=== PATIENT | male | born 1940 | race Caucasian/White ===

== ENCOUNTER 2018-03-18 15:07 | Observation (INO) ==
--- NOTE | 2018-03-18 15:34 | Emergency Department Note ---
Disposition Clinical Impression: Generalized weakness Disposition: Still a Patient General Adult HPI - General Stated complaint: General Weakness Time Seen by Provider: 03/18/18 15:10 Nursing Notes Reviewed: Yes Vital Signs Reviewed: Yes - History of Present Illness HPI Narrative: Attestation note: Patient was seen with the emergency medicine resident/nurse practitioner/physician ward assistant/transitional resident/medical student: Dr. ERROL PINEDA I have personally performed a face to face evaluation on this patient. I have reviewed and agree with history and physical examination patient management and disposition. Briefly the salient points of the case are as follows: 77-year-old male COPD home O2 however uses it irregularly. Brought in by the EMS and his daughter for generalized weakness for the past day or so he was having periods where he was earlier today where he was talking about things that did not make sense to the daughter "legal matters". When is nothing really going on in that arena. There is no slurred speech or problems with movement normally needs a walker and cane to get around the house it does not change nausea but no vomiting no fever shortness breath chest pain L contacts exotic recent travel. Patient will undergo ED evaluation. Patient stable disposition pending admission anticipated
--- NOTE | 2018-03-18 15:34 | Emergency Department Note ---
Addendum entered and electronically signed by Janet Montero 03/18/18 18:51: Addendum to clinical impressions. Patient does not have hypercoagulable state. His elevated INR and PTT. Supratherapeutic INR added to clinical impression. Original Note: Disposition Clinical Impression: Generalized weakness, Acute kidney injury, Hypercoagulable state Pneumonia Qualifiers: Pneumonia type: due to unspecified organism Laterality: bilateral Lung location: lower lobe of lung Qualified Code(s): J18.1 - Lobar pneumonia, unspecified organism Disposition: Admitted As Inpatient Condition: Fair Referrals: NONE,PCP [Primary Care Provider] - General Adult HPI - General Stated complaint: General Weakness Time Seen by Provider: 03/18/18 15:10 Source: patient, family Mode of arrival: EMS Limitations: no limitations Nursing Notes Reviewed: Yes Vital Signs Reviewed: Yes - History of Present Illness HPI Narrative: 77-year-old male with past medical history including atrial fibrillation with pacemaker/AICD, coronary artery disease, CHF hypertension presenting with chief complaint of generalized weakness and confusion just prior to arrival. The p atient states he is generally not feeling well last night, feeling nauseous. He has been having intermittent episodes of dry heaving today but no vomiting. He denies diarrhea or abdominal pain. He was out with his late this afternoon for a couple of hours and was in normal health. When they arrived home half hour prior to arrival, states patient appears to be confused. 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 Denies slurred speech, facial droop, unilateral weakness, paresthesias. She immediately called EMS. On arrival, patient was noted to be alert and oriented 4. No focal neurologic deficits. EMS. Accu-Chek within normal limits. Patient denies any fevers, chest pain, palpitations, lower extremity swelling, cough, shortness of breath. states he had 2 episodes of urinary incontinence today but he took his Lasix this morning. She also states patient is supposed to be on 2 L of oxygen during the day and 3 L of oxygen at nighttime but he was not wearing his oxygen today. - Related Data Home Medications Medication Instructions Recorded Confirmed BuPROPion SR (12 HR) [Wellbutrin 150 mg PO DAILY 03/18/18 03/18/18 SR] Carvedilol [Coreg] 6.25 mg PO BID 03/18/18 03/18/18 HYDROcodone/Acet 10/325 mg [[place] 1 tab PO Q6HR PRN 03/18/18 03/18/18 10-325 mg] Magnesium Oxide [Mag-Ox] 400 mg PO BID 03/18/18 03/18/18 Mirtazapine [Remeron] 15 mg PO HS 03/18/18 03/18/18 Montelukast [Singulair] 10 mg PO DAILY 03/18/18 03/18/18 Omeprazole [PriLOSEC] 20 mg PO DAILY 03/18/18 03/18/18 Potassium Chloride [K-Tab ER] 20 meq PO DAILY 03/18/18 03/18/18 Sotalol [Betapace] 80 mg PO Q12HR 03/18/18 03/18/18 Spironolactone [Aldactone] 25 mg PO DAILY 03/18/18 03/18/18 Tamsulosin HCl [Flomax] 0.4 mg PO DAILY 03/18/18 03/18/18 Torsemide [Demadex] 20 mg PO DAILY 03/18/18 03/18/18 Umeclidinium Brm/Vilanterol Tr 1 puff IH DAILY 03/18/18 03/18/18 [Anoro Ellipta 62.5-25 Mcg INH] Warfarin perPT [Coumadin perPT] 6.5 mg PO DAILY 03/18/18 03/18/18 clonazePAM [Klonopin] 1 mg PO HS 03/18/18 03/18/18 Allergies Allergy/AdvReac Type Severity Reaction Status Date / Time No Known Allergies Allergy Verified 03/18/18 17:13 All systems ED: reviewed and negative except as stated. Review of Systems: As Per HPI Constitutional: Denies: fever, chills ENT ED: Denies: ear pain, throat pain, congestion Cardiovascular: Denies: chest pain, palpitations Respiratory: Denies: cough, dyspnea Gastrointestinal: Reports: nausea. Denies: abdominal pain, vomiting, diarrhea Genitourinary: Reports: other (Incontinence). Denies: urgency, dysuria Musculoskeletal: Denies: back pain Integumentary: Denies: rash Neurological: Reports: weakness, confusion. Denies: headache, paresthesias Past Medical History - Past Medical History Attestation: Yes The following information was validated with the patient. Source: patient, old records reviewed, obtained from family Medical history: Reports: atrial fibrillation, CHF, COPD, hypertension Surgical history: Reports: AICD, pacemaker - Social History Smoking Status: Former smoker Alcohol use: Reports: unknown Drug use: Reports: none Physical Exam - General Limitations: no limitations General appearance: alert, in no apparent distress - Head Head exam: atraumatic, normocephalic, normal inspection - Eye Eye exam: Present: normal appearance, PERRL, EOMI - ENT ENT exam: normal exam, normal oropharynx, mucous membranes moist - Neck Neck exam: Present: normal inspection, full ROM, trachea midline - Chest Chest inspection: Present: normal inspection, symmetric chest wall rise - Respiratory Respiratory exam: Present: other (Decreased breath sounds bilaterally. No wheezing or rhonchi.) - Cardiovascular Cardiovascular exam: Present: regular rate, normal rhythm, normal heart sounds - Abdominal Exam Abdominal exam: Present: soft, Non-Tender. Absent: tenderness, distention, guarding, rebound, rigidity - Extremities Exam Extremities exam: Present: normal inspection, full ROM, other (Bilateral lower extremity 1+ edema to mid calf). Absent: tenderness - Neurological Exam Neurological exam: Present: alert, oriented X3, CN II-XII intact, other (NIHSS 0). Absent: motor sensory deficit - Expanded Neurological Exam Patient oriented to: Present: person, place, time Speech: Present: fluid speech Cerebellar function: finger to nose: Normal, heel to devlin: Normal Motor strength - LUE: 5/5 Motor strength - RUE: 5/5 Motor strength - LLE: 5/5 Motor strength - RLE: 5/5 Upper motor neuron exam: billy neglect: Absent bilaterally, pronator drift: Absent bilaterally Sensory exam upper extremity: light touch: Normal Sensory exam lower extremity: light touch: Normal - Psychiatric Psychiatric exam: Present: normal affect, normal mood - Skin Skin exam: Present: warm, dry, intact, normal color Course Vital Signs Temperature 98.3 F 03/18/18 15:14 Pulse Rate 76 03/18/18 15:14 Respiratory Rate 20 03/18/18 15:14 Blood Pressure 109/57 03/18/18 15:14 O2 Sat by Pulse Oximetry 90 03/18/18 15:14 Temperature 98.3 F 03/18/18 15:14 Pulse Rate 64 03/18/18 18:32 Respiratory Rate 22 12/30/18 18:32 Blood Pressure 99/49 03/18/18 18:32 O2 Sat by Pulse Oximetry 94 03/18/18 18:32 Oxygen Delivery Oxygen Delivery Nasal Cannula Medical Decision Making - [facility] Narrative Medical decision making narrative: Patient presenting with dry heaving, generalized weakness. Concern for confusion at home.Her speech, unilateral weakness, facial droop, paresthesias. Patient is alert and oriented 4. NIHSS is 0. No recent ill contacts, concern for infection. We will obtain ACS workup and sources of infection that can be a cause of his generalized weakness. We will check EKG, troponin, chest x-ray, CBC, BMP, lactate, urinalysis. Concern for new confusion and the patient is on Coumadin, will obtain CT head without contrast. 16:45 Chest x-ray with bilateral pneumonia. We will give IV antibiotics to cover community-acquired pneumonia. Troponin is normal. EKG without acute ischemic changes. Lactate normal. Electrolytes normal. Patient does have MARIBETH. Will give 500cc bolus IVFs and monitor as patient has history of congestive heart failure and pleural effusion on cxr. CT head without acute intracranial abnormality. WIll obtain lateral view of CXR to better visualize his pneumonia. Patient is also on warfarin and INR elevated at 3.9 and PT elevated at 44.4. Pharmacy with concerns that the patient is taking both sotalol and Corag, this will need to be addressed. 17:30 Family concerned as patient was talking about "random things" and not making sense. No facial droop, slurred speech, focal neurologic deficits on repeat exam. Lateral view CXR shows bibasilar atelectasis and pleural effusions. Urine drug screen negative. Will admit to hospitalist. 18:35 Discussed with hospitalist, Dr. Alberto, who accepts admission for pneumonia and intermittent confusion, generalized weakness. - Medical Records Medical records reviewed: Yes I reviewed the patient's medical records. - Lab Data Lab results reviewed: Yes I reviewed the patient's lab results. Result diagrams: 03/18/18 15:21 03/18/18 15:21 Lab Results 03/18/18 03/18/18 03/18/18 Range/Units 15:11 15:21 15:21 WBC 11.7 H (4.3-11.1) K/mcL RBC 4.83 (4.19-5.50) M/mcL Hgb 14.8 (12.9-16.9) g/dL Hct 44.7 (37.5-50.1) % MCV 92.5 (83.0-100.0) fL MCH 30.6 (28.0-33.3) pg MCHC 33.1 (31.6-35.5) g/dL RDW 13.8 (11.5-14.5) % Plt Count 135 L (140-400) K/mcL MPV 10.2 (9.4-12.4) fL Immature Gran % 0.8 (0-4) % Seg Neutrophils % 87.7 % Lymphocytes % 2.2 % Monocytes % 8.3 % Eosinophils % 0.7 % Basophils % 0.3 % Neutrophils # 10.2 H (1.6-8.9) K/mcL Lymphocytes # 0.3 L (0.6-4.6) K/mcL Monocytes # 1.0 (0.0-1.3) K/mcL Eosinophils # 0.1 (0.0-0.6) K/mcL Basophils # 0.0 (0.0-0.2) K/mcL PT 44.4 H* (9.4-12.1) Seconds INR 3.9 Sodium 132 L (136-145) mEq/L Potassium 4.2 (3.5-5.1) mEq/L Chloride 97 L (98-107) mEq/L Carbon Dioxide 25 (23-29) mEq/L BUN 30 H (8-23) mg/dL Creatinine 1.39 H (0.70-1.30) mg/dL Est GFR ( Amer) 60 (> 60) Est GFR (Non-Af Amer) 49 L (> 60) BUN/Creatinine Ratio 22 (6-26) Glucose 123 H (70-105) mg/dL Calculated Osmolality 282 (280-300) Lactic Acid (0.5-2.2) mmol/L Calcium 9.1 (8.6-10.3) mg/dL Troponin I < 0.03 (< 0.04) ng/mL Urine Color (Yellow) Urine Clarity (Clear) Urine pH (5.0-8.0) pH Units Ur Specific [place] (1.010-1.025) Urine Protein (Neg-Trace) mg/dL Urine Glucose (UA) (Normal) mg/dL Urine Ketones (Negative) mg/dL Urine Blood (Negative) Urine Nitrite (Negative) Urine Bilirubin (Negative) Urine Urobilinogen (Normal) mg/dL Ur Leukocyte Esterase (Negative) 03/18/18 03/18/18 Range/Units 15:39 17:25 WBC (4.3-11.1) K/mcL RBC (4.19-5.50) M/mcL Hgb (12.9-16.9) g/dL Hct (37.5-50.1) % MCV (83.0-100.0) fL MCH (28.0-33.3) pg MCHC (31.6-35.5) g/dL RDW (11.5-14.5) % Plt Count (140-400) K/mcL MPV (9.4-12.4) fL Immature Gran % (0-4) % Seg Neutrophils % % Lymphocytes % % Monocytes % % Eosinophils % % Basophils % % Neutrophils # (1.6-8.9) K/mcL Lymphocytes # (0.6-4.6) K/mcL Monocytes # (0.0-1.3) K/mcL Eosinophils # (0.0-0.6) K/mcL Basophils # (0.0-0.2) K/mcL PT (9.4-12.1) Seconds INR Sodium (136-145) mEq/L Potassium (3.5-5.1) mEq/L Chloride (98-107) mEq/L Carbon Dioxide (23-29) mEq/L BUN (8-23) mg/dL Creatinine (0.70-1.30) mg/dL Est GFR ( Amer) (> 60) Est GFR (Non-Af Amer) (> 60) BUN/Creatinine Ratio (6-26) Glucose (70-105) mg/dL Calculated Osmolality (280-300) Lactic Acid 1.8 (0.5-2.2) mmol/L Calcium (8.6-10.3) mg/dL Troponin I (< 0.04) ng/mL Urine Color Yellow (Yellow) Urine Clarity Clear (Clear) Urine pH 5.5 (5.0-8.0) pH Units Ur Specific [place] 1.006 L (1.010-1.025) Urine Protein Negative (Neg-Trace) mg/dL Urine Glucose (UA) Normal (Normal) mg/dL Urine Ketones Negative (Negative) mg/dL Urine Blood Negative (Negative) Urine Nitrite Negative (Negative) Urine Bilirubin Negative (Negative) Urine Urobilinogen Normal (Normal) mg/dL Ur Leukocyte Esterase Negative (Negative) - Radiology Data Radiology results reviewed: Yes I reviewed the patient's radiology results. Chest X-Ray 03/18/18 15:11 IMPRESSION: Bibasilar airspace opacities which may represent pneumonia in the correct clinical setting. Consider follow-up PA and lateral exam for better characterization. D/ / 03/18/2018 16:09:00 Silviano Carreon MD / donna Interpreting Provider: Silviano Carreon MD Head CT 03/18/18 15:35 IMPRESSION: No acute intracranial abnormality. New complete opacification of the right maxillary sinus, likely chronic. No air-fluid levels. D/ / Florencio Simmons MD / Florencio Simmons MD Interpreting Provider: Florencio Simmons MD - EKG Data EKG #1 EKG attestation: Yes I reviewed and interpreted this EKG. EKG results narrative: EKG from today at 1516 shows sinus rhythm with heart rate 80. MA interval 183. QRS duration 99. QTc 4:30. Old anterior infarct. No ST elevation or depression noted. There is no old EKG to compare to.
[2018-03-18 15:49] LABS: Basophils % 0.3 %; Eosinophils # 0.1 K/mcL (0.0-0.6); Eosinophils % 0.7 %; Hematocrit 44.7 % (37.5-50.1); Hemoglobin 14.8 g/dL (12.9-16.9); Immature Granulocytes % 0.8 % (0-4); Lymphocytes # 0.3 K/mcL (0.6-4.6); Lymphocytes % 2.2 %; Mean Corpuscular HGB Conc 33.1 g/dL (31.6-35.5); Mean Corpuscular Hemoglobin 30.6 pg (28.0-33.3); Mean Corpuscular Volume 92.5 fL (83.0-100.0); Mean Platelet Volume 10.2 fL (9.4-12.4); Monocytes % 8.3 %; Neutrophils # 10.2 K/mcL (1.6-8.9); Platelet Count 135 K/mcL (140-400); Red Blood Count 4.83 M/mcL (4.19-5.50); Red Cell Distribution Width 13.8 % (11.5-14.5); Segmented Neutrophils % 87.7 %
[2018-03-18 16:08] LABS: INR 3.9
[2018-03-18 16:11] LABS: BUN/Creatinine Ratio 22 (6-26); Blood Urea Nitrogen 30 mg/dL (8-23); Calcium 9.1 mg/dL (8.6-10.3); Carbon Dioxide 25 mEq/L (23-29); Chloride 97 mEq/L (98-107); Glucose 123 mg/dL (70-105); Osmolality,Calculated 282 (280-300); Potassium 4.2 mEq/L (3.5-5.1); Sodium 132 mEq/L (136-145); eGFR For Non-African Americans 49 (> 60)
[2018-03-18 16:12] LABS: Troponin I < 0.03 ng/mL (< 0.04)
[2018-03-18] MEDS ORDERED: 0.9 % Sodium Chloride 500 ML IVC ONE (16:14)
[2018-03-18 16:15] LABS: Prothrombin Time 44.4 Seconds (9.4-12.1)
[2018-03-18] MEDS ORDERED: cefTRIAXone 1,000 MG in Water for inj. (sterile) 20 ML 10 ML IVP ONE (16:46)
[2018-03-18] MEDS ORDERED: Azithromycin 500 MG in D5% in Water 250 ML IVPB ONE (16:46)
[2018-03-18 17:37] LABS: Bilirubin,Urine Negative (Negative); Blood,Urine Negative (Negative); Clarity,Urine Clear (Clear); Color,Urine Yellow (Yellow); Glucose,Urine (UA) Normal (Normal); Ketones,Urine Negative (Negative); Leukocyte Esterase,Urine Negative (Negative); Nitrite,Urine Negative (Negative); PH,Urine 5.5 pH Units (5.0-8.0); Protein,Urine Negative (Neg-Trace); Specific Gravity,Urine 1.006 (1.010-1.025); Urobilinogen,Urine Normal (Normal)
[2018-03-18] MEDS ORDERED: Naloxone 0.4 MG/ML INJ IVP PRN (19:40)
[2018-03-18] MEDS ORDERED: *HR* HYDROcodone/Acet 10/325 mg TABLET PO PRN (19:42)
--- NOTE | 2018-03-18 20:11 | Internal Med History&Physical ---
Date of Encounter: 03/18/18 Time of Encounter: 20:08 Internal Medicine - H&P: HPI Chief complaint: disorientation Admitted From: Home Plans for Post Hospital Care: Home History of present illness: Mr. Elam is a 77 year old male with PMH of CHF(unspecified), HTN, COPD, CRF on home O2, Afib with AICD and BPH. He is seen at the bedside with family. The patient is out of state and resizing [place]. He reports he was visiting his [id number] when he developed intermittent confusion and disorientation this morning. and family members at the bedside report that the patient was confused and speaking and also Are not related to GI distress caution at that time. Report intermittent chills. There was no recorded fever. He reports associated nausea with dry heaving, no vomiting, he denies diarrhea, abdominal pain, changes in urinary output. He denies chest pain or shortness of breath. He denies PND, orthopnea, pedal edema. The patient actually denies having a cough. The patient is supposed to be on 2-3 L of oxygen continuously, but has not been compliant with his oxygen. He also has not been compliant with his medications because he has been incontinent since his visits to his family member here. The patient is no longer confused at time of review, and is able to give a proper history. He has no other neurologic symptoms or deficits. He denies illicit drug use, he has no known allergies. Workup in the emergency room revealed mild leukocytosis 11,700 with left shift, creatinine is at 1.39, INR is supratherapeutic at 2.9. EKG reviewed showed no significant ST segment depression or elevation, no T-wave inversions. Chest x- ray showed bilateral infiltrate suspicious for pneumonia. At time of review, patient's oxygen saturation is stable at 3 L of oxygen, he is no longer confused, is not septic. The patient reports having advanced directives, and he reports he is DO NOT RES USCITATE and DO NOT INTUBATE. He was no form of life support or chest compressions. He will be placed on observation for pneumonia, Past Med Surg Social Fam HX - Past Medical History Medical history: atrial fibrillation, CHF, COPD, hypertension Additional medical history: Prostate cancer Psychiatric history: no psych history - Past Surgical History Surgical History: AICD, pacemaker Additional surgical history: Heart cath - Social History Smoking Status: Former smoker Smokeless Tobacco Status: No Alcohol use: unknown Drug use: none Internal Medicine - H&P: Meds Carvedilol [Coreg] 6.25 mg PO BID 03/18/18 [History] HYDROcodone/Acet 10/325 mg [Plains 10-325 mg] 1 tab PO Q6HR PRN 03/18/18 [History] Mirtazapine [Remeron] 15 mg PO HS 03/18/18 [History] Montelukast [Singulair] 10 mg PO DAILY 03/18/18 [History] Omeprazole [PriLOSEC] 20 mg PO DAILY 03/18/18 [History] Potassium Chloride [K-Tab ER] 20 meq PO DAILY 03/18/18 [History] RX: BuPROPion SR (12 HR) [Wellbutrin SR] 150 mg PO DAILY 03/18/18 [History] RX: Magnesium Oxide [Mag-Ox] 400 mg PO BID 03/18/18 [History] Sotalol [Betapace] 80 mg PO Q12HR 03/18/18 [History] Spironolactone [Aldactone] 25 mg PO DAILY 03/18/18 [History] Tamsulosin HCl [Flomax] 0.4 mg PO DAILY 03/18/18 [History] Torsemide [Demadex] 20 mg PO DAILY 03/18/18 [History] Umeclidinium Brm/Vilanterol Tr [Anoro Ellipta 62.5-25 Mcg INH] 1 puff IH DAILY 03/18/18 [History] Warfarin perPT [Coumadin perPT] 6.5 mg PO DAILY 03/18/18 [History] clonazePAM [Klonopin] 1 mg PO HS 03/18/18 [History] Allergy/AdvReac Type Severity Reaction Status Date / Time No Known Allergies Allergy Verified 03/18/18 17:13 All Systems PM: A 10-system review of systems was performed and is negative for pertinent findings except as documented above in the HPI. - Constitutional Constitutional: as per HPI - EENT Eyes: as per HPI Ears: as per HPI Nose, mouth and throat: as per HPI - Breasts Breasts: as per HPI - Cardiovascular Cardiovascular ROS IM: as per HPI - Respiratory Respiratory: as per HPI - Gastrointestinal Gastrointestinal: as per HPI - Musculoskeletal Musculoskeletal ROS IM: as per HPI - Integumentary Integumentary IM: as per HPI - Neurological Neurological ROS: as per HPI - Hematologic/Lymphatic Hematologic/Lymphatic: as per HPI - Constitutional Vitals: Temp Pulse Resp BP Pulse Ox 98.3 F 64 22 99/51 94 03/18/18 15:14 03/18/18 18:32 03/18/18 19:59 03/18/18 19:59 03/18/18 18:32 General appearance: Present: cooperative, A&O X 3, pleasant, no acute distress Exam: elderly man in no form of distress, speaks full sentences - Head Head exam: Present: atraumatic, normocephalic - Eye Eye exam: Present: PERRL, conjuntiva pink, sclera anicteric Pupils: Present: PERRL - Neck Neck exam general surgery: Present: supple, trachea midline. Absent: lymphadenopathy - Respiratory Respiratory exam: Present: CTAB. Absent: accessory muscle use, rales, rhonchi, wheezes - Cardiovascular Cardiovascular exam: Present: irregular rhythm, +S1, +S2, systolic murmur. Absent: diastolic murmur, gallop, rubs - GI/Abdominal GI/Abdominal exam: Present: normal bowel sounds, soft, no peritoneal signs. Absent: distended, tenderness - Extremities Exam Extremities exam: Present: warm, radial pulses palpable and symmetrical. Absent: calf tenderness, cyanotic, pedal edema - Neurological Exam Neurological exam: Present: alert, CN II-XII intact, oriented X3, no focal deficits. Absent: pronater drift, facial droop, speech deficit - Skin Skin exam: Present: dry, intact Internal Med - H&P Results - Labs CBC & Chem 7: 03/18/18 15:21 03/18/18 15:21 Labs: Short CBC 03/18/18 Range/Units 15:21 WBC 11.7 H (4.3-11.1) K/mcL Hgb 14.8 (12.9-16.9) g/dL Hct 44.7 (37.5-50.1) % Plt Count 135 L (140-400) K/mcL Neutrophils # 10.2 H (1.6-8.9) K/mcL BMP 03/18/18 15:21 Sodium 132 L Potassium 4.2 Chloride 97 L Carbon Dioxide 25 BUN 30 H Creatinine 1.39 H Glucose 123 H Calcium 9.1 Cardiac Enzymes 03/18/18 Range/Units 15:21 Troponin I < 0.03 (< 0.04) ng/mL Urine 03/18/18 Range/Units 17:25 Urine Color Yellow (Yellow) Urine Clarity Clear (Clear) Urine pH 5.5 (5.0-8.0) pH Units Ur Specific [place] 1.006 L (1.010-1.025) Urine Protein Negative (Neg-Trace) mg/dL Urine Glucose (UA) Normal (Normal) mg/dL - Impressions ITS Impressions Chest X-Ray 03/18/18 15:11 IMPRESSION: Bibasilar airspace opacities which may represent pneumonia in the correct clinical setting. Consider follow-up PA and lateral exam for better characterization. D/ / 03/18/2018 16:09:00 Silviano Carreon MD / jia rob Interpreting Provider: Silviano Carreon MD Head CT 03/18/18 15:35 IMPRESSION: No acute intracranial abnormality. New complete opacification of the right maxillary sinus, likely chronic. No air-fluid levels. D/ / Florencio Simmons MD / Florencio Simmons MD Interpreting Provider: Florencio Simmons MD Chest X-Ray 03/18/18 16:43 IMPRESSION: Probable small pleural effusions with bibasilar atelectasis. Probable large hiatal hernia. Chest CT would prove helpful for complete assessment. D/ / 03/18/2018 17:10:19 Uvaldo Mcgregor MD / monica Interpreting Provider: Uvaldo Mcgregor MD - Assessment and plan (1) Pneumonia Current Visit: Yes Status: Suspected Assessment and plan: Suspected Patient presented with disorientation and said to have been hypoxic per squad, he also had some chills and fever. He denies any cough, he denies shortness of breath above his baseline. He is however tachypneic. Chest x-ray shows bilateral bibasilar atelctasis suspicious for PNA Patient's symptoms are not consistent with PNA Will obtain legionella and strep Ag, RIP Continue cef and azithromycin and may de-escalate with work up O2 requirement is at baseline, continue O2 Qualifiers: Pneumonia type: due to unspecified organism Laterality: bilateral Lung location: lower lobe of lung Qualified Code(s): J18.1 - Lobar pneumonia, unspecified organism (2) Supratherapeutic INR Current Visit: Yes Status: Acute Assessment and plan: INR 3.9 On Coumadinf or Afib Hold Coumadin, monitor INR, pharmacy to dose (3) Afib Current Visit: Yes Status: Chronic Assessment and plan: HR currently controlled, patient with ICD Patient with hx of afib on both Coreg and sotalol Patient or is unsure as to why We will hold Sotalol and continue with Coreg Day caballero to pls call Patient's pharmacy [facility] [phone]([place], [place]) Or EPS Dr. 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) and patient seeing a salvage winder twice yearly Received IVF in ER, will hold off IVF, baseline Cr unknown Obtain renal USS Check urine creatinine and urine sodium, although the patient is on diuretics Continue home medications, including diuretics Qualifiers: Renal failure chronicity: unspecified chronicity Qualified Code(s): N19 - Unspecified kidney failure (5) COPD (chronic obstructive pulmonary disease) Current Visit: Yes Status: Chronic Assessment and plan: not in any form of exacerbation at this time, chest is CTAB, no wheezing, no added sounds Duonebs prn Continue home montelukast Qualifiers: COPD type: unspecified COPD Qualified Code(s): J44.9 - Chronic obstructive pulmonary disease, unspecified (6) Chronic respiratory failure Current Visit: Yes Status: Chronic Assessment and plan: not compliant Continue home O2 Qualifiers: Respiratory failure complication: hypoxia Qualified Code(s): J96.11 - Chr onic respiratory failure with hypoxia (7) CHF (congestive heart failure) Current Visit: Yes Status: Suspected Assessment and plan: patient on BB, Spironolactone, torsemide Currently euvolemic Continue home meds Qualifiers: Heart failure type: unspecified Heart failure chronicity: chronic Qualified Code(s): I50.9 - Heart failure, unspecified - Time Spent With Patient Total time spent is greater than 50% in coordination of care (as documented) at patient's floor/unit and/or counseling patient:
[2018-03-18 22:51] LABS: Sodium, Urine 70.7 mEq/L
[2018-03-18] MEDS: clonazePAM 1 MG TABLET PO SCH (23:04)
[2018-03-18] MEDS: Mirtazapine 15 MG TABLET PO SCH (23:04)
[2018-03-18] MEDS: Magnesium Oxide 400 MG TABLET PO SCH (23:04)
[2018-03-19] MEDS ORDERED: Haloperidol Lactate 5 MG/ML VIAL IM ONE (01:02)
--- NOTE | 2018-03-19 01:04 | Event Note ---
Date of Encounter: 03/19/18 Time of Encounter: 01:04 Patient has developed fever with more confusion. Will give acetaminophen as well as one time dose of haldol as he is currently combative Continue antibiotics and await cultures.
[2018-03-19] MEDS ORDERED: Acetaminophen 325 MG TABLET PO PRN (01:07)
[2018-03-19 05:19] LABS: ABG Base Excess 2 mEq/L (-2 to 3); ABG HCO3 25 mEq/L (21-27); ABG Oxygen Saturation 90 % (95-98); ABG PCO2 35 mmHg (35-45); ABG PH 7.47 pH Units (7.32-7.45); ABG PO2 55 mmHg (85-104); ABG TCO2 27 mEq/L (20-26)
[2018-03-19 06:17] LABS: Basophils % 0.3 %; Hematocrit 40.4 % (37.5-50.1); Hemoglobin 13.4 g/dL (12.9-16.9); Immature Granulocytes % 0.7 % (0-4); Lymphocytes # 0.3 K/mcL (0.6-4.6); Lymphocytes % 3.2 %; Mean Corpuscular HGB Conc 33.2 g/dL (31.6-35.5); Mean Corpuscular Hemoglobin 30.7 pg (28.0-33.3); Mean Corpuscular Volume 92.4 fL (83.0-100.0); Mean Platelet Volume 10.2 fL (9.4-12.4); Monocytes # 0.7 K/mcL (0.0-1.3); Monocytes % 7.2 %; Neutrophils # 8.8 K/mcL (1.6-8.9); Platelet Count 109 K/mcL (140-400); Red Blood Count 4.37 M/mcL (4.19-5.50); Red Cell Distribution Width 14.1 % (11.5-14.5); Segmented Neutrophils % 88.6 %
[2018-03-19 06:24] LABS: INR 2.7; Prothrombin Time 30.1 Seconds (9.4-12.1)
[2018-03-19 06:36] LABS: BUN/Creatinine Ratio 26 (6-26); Blood Urea Nitrogen 34 mg/dL (8-23); Calcium 8.7 mg/dL (8.6-10.3); Carbon Dioxide 26 mEq/L (23-29); Chloride 98 mEq/L (98-107); Glucose 104 mg/dL (70-105); Magnesium 2.1 mg/dL (1.6-2.6); Osmolality,Calculated 278 (280-300); Phosphorous 3.5 mg/dL (2.7-4.5); Potassium 4.4 mEq/L (3.5-5.1); Sodium 130 mEq/L (136-145); eGFR For Non-African Americans 52 (> 60)
[2018-03-19] MEDS: Spironolactone 25 MG TABLET PO SCH (07:39)
[2018-03-19] MEDS: Torsemide 20 MG TABLET PO SCH (07:39)
[2018-03-19] MEDS: BuPROPion SR (12 HR) 150 MG TABLET PO SCH (07:39)
[2018-03-19] MEDS: Magnesium Oxide 400 MG TABLET PO SCH ×2 (07:39→22:40)
[2018-03-19] MEDS ORDERED: (Umeclidinium Brm/Vilanterol Tr [Anoro Ellipta 62.5-2 IH SCH (09:00)
[2018-03-19] MEDS: Doxycycline 100 MG in 0.9 % Sodium Chloride Mini Bag 100 ML IVPB SCH ×2 (11:11→17:28)
[2018-03-19] MEDS: Ipratropium/Albuterol Neb 3 ML IH SCH ×3 (11:23→22:03)
--- NOTE | 2018-03-19 11:33 | Internal Med Progress Note ---
Hospitalist Progress Note - Encounter Date of Encounter: 03/19/18 Time of Encounter: 10:15 - Subjective Interval History: Patient is awake and alert. Lying down in bed. Feels better compared to yesterday but continues to have generalized weakness and malaise. Denies any chest pain. Shortness of breath is improving. No nausea or vomiting. No reported fever overnight. - Exam Vitals: Temp Pulse Resp BP Pulse Ox 99.1 F 70 16 151/62 93 03/19/18 06:55 03/19/18 06:55 03/19/18 06:55 03/19/18 06:55 03/19/18 06:55 Exam: General: Patient is alert, no acute distress, oriented x 3 ENT: Mucous membranes moist Respiratory: Basal crackles. Mild wheezing. Cardiovascular: Regular rate and rhythm. s1 and s2 normal No clicks, rubs, gallops, or murmurs. No pedal edema Abdomen: Abdomen is soft, nontender. Bowel sounds are present Musculoskeletal: Spontaneously moving all extremities Skin: warm, dry, intact. Neuro: Alert oriented x 3 normal cranial nerves, no focal deficits - Assessment and Plan (1) Pneumonia Current Visit: Yes Status: Suspected Assessment and Plan: WBC count is improving. Chest x-ray showed bibasal atelectasis. Strep and legionella antigens are negative. Will change antibiotic to azithromycin and ceftriaxone as patient is also on sotalol. Will obtain repeat chest x-ray to evaluate. (2) Supratherapeutic INR Current Visit: Yes Status: Acute Assessment and Plan: Improving. Place patient back on Coumadin per PT INR (3) Afib Current Visit: Yes Status: Chronic Assessment and Plan: Rate controlled. Continue sotalol (4) Renal failure Current Visit: Yes Status: Acute Assessment and Plan: Creatinine 1.32 today. Renal ultrasound done which showed signs of chronic medical renal disease. Most likely patient has chronic kidney disease (5) COPD (chronic obstructive pulmonary disease) Current Visit: Yes Status: Chronic Assessment and Plan: Mild wheezing. Continue bronchodilators. (6) Chronic respiratory failure Current Visit: Yes Status: Chronic Assessment and Plan: Continue O2 supplementation. (7) CHF (congestive heart failure) Current Visit: Yes Status: Suspected Assessment and Plan: Not in acute exacerbation. Patient is euvolemic. Continue home medications including torsemide, spironolactone - Time Spent with Patient Total time spent is greater than 50% in coordination of care (as documented) at patient's floor/unit and/or counseling patient: Internal Medicine: Result - Labs CBC & Chem 7: 03/19/18 05:47 03/19/18 05:47 Labs: Short CBC 03/18/18 03/19/18 Range/Units 15:21 05:47 WBC 11.7 H 9.9 (4.3-11.1) K/mcL Hgb 14.8 13.4 (12.9-16.9) g/dL Hct 44.7 40.4 (37.5-50.1) % Plt Count 135 L 109 L (140-400) K/mcL Neutrophils # 10.2 H 8.8 (1.6-8.9) K/mcL BMP 03/18/18 03/19/18 15:21 05:47 Sodium 132 L 130 L Potassium 4.2 4.4 Chloride 97 L 98 Carbon Dioxide 25 26 BUN 30 H 34 H Creatinine 1.39 H 1.32 H Glucose 123 H 104 Calcium 9.1 8.7 Cardiac Enzymes 03/18/18 Range/Units 15:21 Troponin I < 0.03 (< 0.04) ng/mL Urine 03/18/18 Range/Units 17:25 Urine Color Yellow (Yellow) Urine Clarity Clear (Clear) Urine pH 5.5 (5.0-8.0) pH Units Ur Specific [place] 1.006 L (1.010-1.025) Urine Protein Negative (Neg-Trace) mg/dL Urine Glucose (UA) Normal (Normal) mg/dL - ABG Interpretation ABG results: ABG ABG pH 7.47 pH Units (7.32-7.45) H 03/19/18 05:14 ABG pCO2 35 mmHg (35-45) 03/19/18 05:14 ABG pO2 55 mmHg (85-104) L 03/19/18 05:14 ABG O2 Saturation 90 % (95-98) L 03/19/18 05:14 PT/INR, D-dimer PT 30.1 Seconds (9.4-12.1) H 03/19/18 05:47 - Impressions Impressions Chest X-Ray 03/18/18 15:11 IMPRESSION: Bibasilar airspace opacities which may represent pneumonia in the correct clinical setting. Consider follow-up PA and lateral exam for better characterization. D/ / 03/18/2018 16:09:00 Silviano Carreon MD / donna Interpreting Provider: Silviano Carreon MD Head CT 03/18/18 15:35 IMPRESSION: No acute intracranial abnormality. New complete opacification of the right maxillary sinus, likely chronic. No air-fluid levels. D/ / Florencio Simmons MD / Florencio Simmons MD Interpreting Provider: Florencio Simmons MD Chest X-Ray 03/18/18 16:43 IMPRESSION: Probable small pleural effusions with bibasilar atelectasis. Probable large hiatal hernia. Chest CT would prove helpful for complete assessment. D/ / 03/18/2018 17:10:19 Uvaldo Mcgregor MD / monica Interpreting Provider: Uvaldo Mcgregor MD Retroperitoneum Ultrasound 03/19/18 09:30 IMPRESSION: Findings suggesting chronic medical renal disease with mild renal cortical atrophy. No hydronephrosis or intrarenal stones. Distended bladder with significant postvoid residual possibly secondary to chronic bladder outlet obstruction from an enlarged prostate. D/ / Ryan Benitez MD / Ryan Benitez MD Interpreting Provider: Ryan Benitez MD Consult Discharge Plan - Plan Referrals: NONE,PCP [Primary Care Provider] - (Patient is from [place]) (1) Pneumonia Qualifiers: Pneumonia type: due to unspecified organism Laterality: bilateral Lung location: lower lobe of lung Qualified Code(s): J18.1 - Lobar pneumonia, unspecified organism (3) Afib Qualifiers: Atrial fibrillation type: chronic Qualified Code(s): I48.2 - Chronic atrial fibrillation (4) Renal failure Qualifiers: Renal failure chronicity: unspecified chronicity Qualified Code(s): N19 - Unspecified kidney failure (5) COPD (chronic obstructive pulmonary disease) Qualifiers: COPD type: unspecified COPD Qualified Code(s): J44.9 - Chronic obstructive pulmonary disease, unspecified (6) Chronic respiratory failure Qualifiers: Respiratory failure complication: hypoxia Qualified Code(s): J96.11 - Chronic respiratory failure with hypoxia (7) CHF (congestive heart failure) Qualifiers: Heart failure type: unspecified Heart failure chronicity: chronic Qualified Code(s): I50.9 - Heart failure, unspecified
[2018-03-19] MEDS ORDERED: 0.9 % Sodium Chloride 500 ML IVC ONE (16:37)
[2018-03-19] MEDS: cefTRIAXone 1,000 MG in Water for inj. (sterile) 20 ML 10 ML IVP SCH (16:40)
[2018-03-19] MEDS ORDERED: 0.9 % Sodium Chloride 500 ML ONE (16:40)
[2018-03-19] MEDS ORDERED: Azithromycin 500 MG in D5% in Water 250 ML IVPB SCH (17:00)
[2018-03-19] MEDS ORDERED: Warfarin perPT PO PRN (18:00)
[2018-03-19] MEDS ORDERED: *HR* Warfarin 4 MG TABLET PO ONE (18:00)
[2018-03-19] MEDS: Mirtazapine 15 MG TABLET PO SCH (22:40)
[2018-03-19] MEDS: clonazePAM 1 MG TABLET PO SCH (22:41)
[2018-03-20] MEDS: Ipratropium/Albuterol Neb 3 ML IH SCH ×2 (03:31→09:45)
[2018-03-20 04:36] LABS: Immature Granulocytes % 0.4 % (0-4)
[2018-03-20 04:38] LABS: Basophils % 0.6 %; Eosinophils # 0.2 K/mcL (0.0-0.6); Eosinophils % 3.2 %; Hematocrit 38.9 % (37.5-50.1); Hemoglobin 13.2 g/dL (12.9-16.9); INR 1.4; Lymphocytes # 0.6 K/mcL (0.6-4.6); Lymphocytes % 11.5 %; Mean Corpuscular HGB Conc 33.9 g/dL (31.6-35.5); Mean Corpuscular Hemoglobin 31.3 pg (28.0-33.3); Mean Corpuscular Volume 92.2 fL (83.0-100.0); Mean Platelet Volume 10.2 fL (9.4-12.4); Monocytes # 0.7 K/mcL (0.0-1.3); Monocytes % 14.1 %; Neutrophils # 3.7 K/mcL (1.6-8.9); Prothrombin Time 16.3 Seconds (9.4-12.1); Red Blood Count 4.22 M/mcL (4.19-5.50); Red Cell Distribution Width 14.1 % (11.5-14.5); Segmented Neutrophils % 70.2 %
[2018-03-20 04:39] LABS: Platelet Count 99 K/mcL (140-400)
[2018-03-20 04:53] LABS: BUN/Creatinine Ratio 28 (6-26); Blood Urea Nitrogen 36 mg/dL (8-23); Calcium 8.9 mg/dL (8.6-10.3); Carbon Dioxide 26 mEq/L (23-29); Chloride 102 mEq/L (98-107); Glucose 106 mg/dL (70-105); Osmolality,Calculated 287 (280-300); Sodium 134 mEq/L (136-145); eGFR For Non-African Americans 55 (> 60)
[2018-03-20] MEDS: Doxycycline 100 MG in 0.9 % Sodium Chloride Mini Bag 100 ML IVPB SCH (06:34)
--- NOTE | 2018-03-20 08:45 | Discharge Summary ---
Orders not resulted at time of discharge: Pending orders 03/21/18 04:00 PT/INR [Prothrombin Time INR] [COAG] AM 0400 03/22/18 04:00 PT/INR [Prothrombin Time INR] [COAG] AM 0400 03/23/18 04:00 PT/INR [Prothrombin Time INR] [COAG] AM 0400 03/24/18 04:00 PT/INR [Prothrombin Time INR] [COAG] AM 0400 Date of Encounter: 03/20/18 Time of Encounter: 08:45 - Discharge Diagnosis (1) Pneumonia Priority: Primary Status: Suspected Assessment and Plan: 77 year old male with PMH of CHF(unspecified), HTN, COPD, CRF on home O2, Afib with AICD and BPH. He is seen at the bedside with family. The patient is out of state and resizing [place]. He reports he was visiting his [id number] when he developed intermittent confusion and disorientation this morning. and family members at the bedside report that the patient was confused and speaking and also Are not related to GI distress caution at that time. Report intermittent chills. There was no recorded fever. WBC count is improving. Chest x-ray showed bibasal atelectasis. Strep and legionella antigens are negative. He was assessed with pneumonia and started on ceftriaxone and azithromycin with improvement. He was discharged on a course of cefdinir and doxycycline. He was discharged in a stable condition Qualifiers: Pneumonia type: due to unspecified organism Laterality: bilateral Lung location: lower lobe of lung Qualified Code(s): J18.1 - Lobar pneumonia, unspecified organism (2) Supratherapeutic INR Priority: Primary Status: Acute Assessment and Plan: Improving. Place patient back on Coumadin per PT INR (3) Afib Priority: Primary Status: Chronic Qualifiers: Atrial fibrillation type: chronic Qualified Code(s): I48.2 - Chronic atrial fibrillation (4) Renal failure Priority: Primary Status: Acute Qualifiers: Renal failure chronicity: unspecified chronicity Qualified Code(s): N19 - Unspecified kidney failure (5) COPD (chronic obstructive pulmonary disease) Priority: Primary Status: Chronic Qualifiers: COPD type: unspecified COPD Qualified Code(s): J44.9 - Chronic obstructive pulmonary disease, unspecified (6) Chronic respiratory failure Priority: Primary Status: Chronic Qualifiers: Respiratory failure complication: hypoxia Qualified Code(s): J96.11 - Chronic respiratory failure with hypoxia (7) CHF (congestive heart failure) Priority: Primary Status: Suspected Qualifiers: Heart failure type: unspecified Heart failure chronicity: chronic Qualified Code(s): I50.9 - Heart failure, unspecified Hospital course: Mr. Elam is a 77 year old male - Time Spent with Patient Total time spent providing and/or coordinating discharge services: - Discharge Medications Prescriptions: Cefdinir [Omnicef] 300 mg PO BID 3 Days #6 capsule Doxycycline 100 mg PO BID #6 capsule Home Medications: BuPROPion SR (12 HR) [Wellbutrin SR] 150 mg PO DAILY 03/18/18 [History] Carvedilol [Coreg] 6.25 mg PO BID 03/18/18 [History] HYDROcodone/Acet 10/325 mg [[place] 10-325 mg] 1 tab PO Q6HR PRN 03/18/18 [History] Magnesium Oxide [Mag-Ox] 400 mg PO BID 03/18/18 [History] Mirtazapine [Remeron] 15 mg PO HS 03/18/18 [History] Montelukast [Singulair] 10 mg PO DAILY 03/18/18 [History] Omeprazole [PriLOSEC] 20 mg PO DAILY 03/18/18 [History] Potassium Chloride [K-Tab ER] 20 meq PO DAILY 03/18/18 [History] Sotalol [Betapace] 80 mg PO Q12HR 03/18/18 [History] Spironolactone [Aldactone] 25 mg PO DAILY 03/18/18 [History] Tamsulosin HCl [Flomax] 0.4 mg PO DAILY 03/18/18 [History] Torsemide [Demadex] 20 mg PO DAILY 03/18/18 [History] Umeclidinium Brm/Vilanterol Tr [Anoro Ellipta 62.5-25 Mcg INH] 1 puff IH DAILY 03/18/18 [History] Warfarin perPT [Coumadin perPT] 6.5 mg PO DAILY 03/18/18 [History] clonazePAM [Klonopin] 1 mg PO HS 03/18/18 [History] Cefdinir [Omnicef] 300 mg PO BID 3 Days #6 capsule 03/20/18 [Rx] Doxycycline 100 mg PO BID #6 capsule 03/20/18 [Rx] Allergies/Adverse Reactions: Allergy/AdvReac Type Severity Reaction Status Date / Time No Known Allergies Allergy Verified 03/18/18 17:13 Date of admission: 03/18/18 19:38 Primary care physician: PCP NONE - Constitutional Vitals: Temp Pulse Resp BP Pulse Ox 97.6 F 59 19 121/73 93 03/20/18 07:25 03/20/18 07:25 03/20/18 07:25 03/20/18 07:25 03/20/18 07:25 General appearance: Present: cooperative, A&O X 3, pleasant, no acute distress Exam: General: Patient is alert, no acute distress, oriented x 3 ENT: Mucous membranes moist Respiratory: Basal crackles. Mild wheezing. Cardiovascular: Regular rate and rhythm. s1 and s2 normal No clicks, rubs, gallops, or murmurs. No pedal edema Abdomen: Abdomen is soft, nontender. Bowel sounds are present Musculoskeletal: Spontaneously moving all extremities Skin: warm, dry, intact. Neuro: Alert oriented x 3 normal cranial nerves, no focal deficits - Patient Status Disposition: Admitted As Inpatient Condition: Good - Discharge Instructions Instructions: Bronchiolitis (DC), Acute Kidney Injury (DC) Follow Up With: NONE,PCP [Primary Care Provider] - (Patient is from [place] and will make own Hospital follow up once she is home. Informed patient to please try to have the follow up done within 5-7 days. Thank you!)
[2018-03-20] MEDS: Magnesium Oxide 400 MG TABLET PO SCH (08:59)
[2018-03-20] MEDS: Torsemide 20 MG TABLET PO SCH (08:59)
[2018-03-20] MEDS: BuPROPion SR (12 HR) 150 MG TABLET PO SCH (08:59)
[2018-03-20] MEDS: Spironolactone 25 MG TABLET PO SCH (08:59)
[2018-03-20] MEDS: cefTRIAXone 1,000 MG in Water for inj. (sterile) 20 ML 10 ML IVP SCH (09:11)
[2018-03-20 11:09] VITALS: BP 121/73
[2018-03-20] MEDS ORDERED: *HR* Warfarin 5 MG TABLET PO ONE (18:00)
--- NOTE | 2018-03-21 11:36 | Electrocardiograph Report ---
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
== END 2018-03-20 11:01 | disposition other institution (70) ==
LOC: EMEROOARM 15:07 → 2ANU 15:07 → SUATTDRO 19:38 → 2ANU 20:03
PROVIDERS: ADMIT Internal Medicine; ATTEND Internal Medicine